=== PATIENT | male | born 1985 | race American Indian/Alaskan Native ===

== ENCOUNTER 2018-12-08 10:56 | Emergency (ER) | payer MEDICAID ==
[2018-12-08 11:33] VITALS: BP 121/85
--- NOTE | 2018-12-08 11:35 | Event Note ---
ED Screening Note ED Screening Note: HX HEP B AND COLON CA AT 2Y OF AG HAD CHEMO; NO SURG NO COLONSCOPY ADULT NO HIV-- NO ASTHMA--NO HX PE HERE WITH COUGH, NO FEVER, SPUTUM GREEN/YELLOW RX COREG RAMIPRIL VEMLIDY SEEN AT [facility] TUESDAY- NO XRAY GIVEN PEARLS, ALB INHALER, AZITHRO COUGH WORSE CANT SLEEP SOB WITH ACTIVITY MILD TACHY RATE 102 NO FEVER This initial assessment/diagnostic orders/clinical plan/treatment(s) is/are subject to change based on patients health status, clinical progression and re- assessment by fellow clinical providers in the ED. Further treatment and workup at subsequent clinical providers discretion. Patient/guardian urged not to elope from the ED as their condition may be serious if not clinically assessed and managed. Initial orders include: CHEST XRAY CBC, BMP DIMER GIVEN ST AND SOB; HX COLON CA; RETURN TO ER [facility]
--- NOTE | 2018-12-08 11:54 | Emergency Department Report ---
Minor Respiratory - HPI Chief Complaint: Upper Respiratory Infection Stated Complaint: UPPER RESPIRATORY INFECTION/NOT ABLE TO SLEEP Time Seen by Provider: 12/08/18 11:30 Duration: 3 weeks Severity: moderate Minor Respiratory: Yes Able to Tolerate Fluids, Yes Cough, Yes Shortness of Breath, No Rhinorrhea, No Sore Throat, No Ear Pain, No Sick Contacts, No Hemoptysis, No Chest Pain, No Fever Other History: CC: "I think I have an upper respiratory infection.". 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 Worse when laying flat at night. No fever. No chest pain. No leg pain. ED Review of Systems ROS: Stated complaint: UPPER RESPIRATORY INFECTION/NOT ABLE TO SLEEP Other details as noted in HPI Comment: All other systems reviewed and negative Constitutional: denies: fever, malaise Respiratory: cough, shortness of breath Cardiovascular: denies: chest pain ED Past Medical Hx - Past Medical History Previous Medical History?: Yes Hx Liver Disease: Yes (hepatitis B 2000) Hx of Cancer: Yes (colon 1986) Additional medical history: "HEART DAMAGE D/T CHEMO", - Surgical History Past Surgical History?: Yes Additional Surgical History: COLON SURGERY?? - Social History Smoking Status: Never Smoker Substance Use Type: None - Medications Home Medications: Home Medications Medication Instructions Recorded Confirmed Last Taken Type Carvedilol [Coreg] 3.125 mg PO BID 08/11/14 08/11/14 08/11/14 03:00 History Diphenoxylate/Atropine [Lomotil] 1 tab PO Q4H PRN #12 tablet 08/11/14 Unknown Rx Ondansetron [Zofran] 4 mg PO Q6HR PRN #15 tablet 08/11/14 Unknown Rx Ramipril 2.5 mg PO QDAY 08/11/14 08/11/14 08/11/14 03:00 History Benzonatate [Tessalon Perles] 100 mg PO Q8HR PRN #20 capsule 12/08/18 Unknown Rx levoFLOXacin [Levaquin TAB] 500 mg PO QDAY 7 Days #7 tablet 12/08/18 Unknown Rx Minor Respiratory Exam - Exam General: Vital signs noted. No distress. Alert and acting appropriately. General: Well-appearing, no acute distress HEENT: Normocephalic atraumatic pupils equal round and reactive to light anicteric sclera Nose: no rhinorrhea Oropharynx: Clear mucous membranes no lesions Neck: supple, no meningismus Chest: Clear to auscultation bilaterally no rales rhonchi no wheezes Cardiac: Regular rate and rhythm no murmurs no rubs no gallops Abdomen: Soft nontender nondistended positive bowel sounds no guarding Extremities: No cyanosis no clubbing no edema Neuro: Moves all extremities 4, no gross deficits Psychiatric: Alert and oriented 4 normal affect normal judgment normal insight HEENT: Yes Moist Mucous Membranes, No Pharyngeal Erythema, No Pharyngeal Exudates, No Rhinorrhea, No Conjuctival Injection, No Frontal Tenderness, No Maxillary Tenderness Neck: Yes Supple, No Adenopathy Lungs: Yes Good Air Exchange, No Wheezes, No Ronchi, No Stridor, No Cough, No Labored Respirations, No Retractions, No Use of Accessory Muscles, No Other Abnormal Lung Sounds Heart: Yes Regular, No Murmur Abdomen: Yes Normal Bowel Sounds, No Tenderness, No Peritoneal Signs Skin: No Rash, No Edema Neurologic: Alert and oriented, no deficits. Musculoskeletal: Unremarkable. ED Course Vital Signs 12/08/18 11:30 Temperature 98 F Pulse Rate 102 H Respiratory 20 Rate Blood Pressure 121/85 [Right] O2 Sat by Pulse 98 Oximetry ED Medical Decision Making - Medical Decision Making Mr. Macedo presents with 3 weeks of cough, dyspnea and PND. CXR PA/lateral ready by radiology cardiomegaly. No chest pain or risk factors to indicated PE. No evidence of CHF or PNA. rx: levaquin, tessalon perles Mr. Macedo understands return precautions. Antibiotics indicated due to duration of symptoms Critical care attestation.: If time is entered above; I have spent that time in minutes in the direct care of this critically ill patient, excluding procedure time. ED Disposition Clinical Impression: Acute bronchitis Disposition: DC-01 TO HOME OR SELFCARE Is pt being admited?: No Does the pt Need Aspirin: No Condition: Stable Instructions: Acute Bronchitis (ED) Prescriptions: levoFLOXacin [Levaquin TAB] 500 mg PO QDAY 7 Days #7 tablet Benzonatate [Tessalon Perles] 100 mg PO Q8HR PRN #20 capsule PRN Reason: Cough
--- NOTE | 2018-12-08 11:57 | XRay Report ---
CHEST XRAY, 2 VIEWS: History: Shortness of breath. Findings: There is mild cardiomegaly. The pulmonary vessels are slightly prominent. The lungs are clear and fully expanded. No infiltrate, pleural effusion or pneumothorax. Normal thoracic cage. IMPRESSION: Cardiomegaly.
== END 2018-12-08 12:18 | disposition home or self-care (01) ==
LOC: ED 10:56
DX: J20.9 Acute bronchitis, unspecified (principal)
CPT/HCPCS: 71046; 99283